=== PATIENT | female | born 1960 | race African-American/Black ===

== ENCOUNTER 2020-12-05 11:33 | Inpatient (IN) | payer OTHER ==
[2020-12-05 12:28] VITALS: BMI 33.6
[2020-12-05] MEDS ORDERED: IBUPROFEN 400 MG TABLET (FP) PO PRN (18:04)
[2020-12-05] MEDS ORDERED: P-EPHED 60MG/TRIPROLIDI 2.5MG TABLET PO PRN (18:04)
[2020-12-05] MEDS ORDERED: MAG HYDROX/AL HYDROX/SIMETH 30 ML UNIT-DOSE CUP PO PRN (18:04)
[2020-12-05] MEDS ORDERED: MAGNESIUM HYDROX 2400MG/30ML ORAL SUSPENSION 30 ML CUP PO PRN (18:04)
[2020-12-05] MEDS ORDERED: guaiFENesin 200 MG/10 ML 10 ML UNIT-DOSE CUPS PO PRN (18:04)
[2020-12-05] MEDS ORDERED: LOPERAMIDE HCL 2 MG CAPSULE PO PRN (18:04)
[2020-12-05] MEDS ORDERED: MAGNESIUM CITRATE 300 ML BOTTLE PO PRN (18:04)
[2020-12-05] MEDS ORDERED: ACETAMINOPHEN 325 MG TABLET (FP) PO PRN (18:04)
[2020-12-05] MEDS ORDERED: TUBERCULIN PPD 5 TU/0.1ML VIAL ID ONE (18:47)
[2020-12-05] MEDS: NICOTINE 21 MG/24 HOURS TOPICAL PATCH TD SCH (18:51)
[2020-12-05] MEDS: hydrOXYzine PAMOATE 25 MG CAPSULE (FP) PO SCH (22:09)
[2020-12-05] MEDS: MELATONIN 5 MG TABLETS PO SCH (22:09)
[2020-12-05] MEDS: THIAMINE HCL 100 MG TABLET (FP) PO SCH (22:10)
[2020-12-06] MEDS: hydrOXYzine PAMOATE 25 MG CAPSULE (FP) PO SCH ×5 (06:40→21:12)
[2020-12-06 08:59] LABS: ALBUMIN 3.7 g/dl (3.4-5.0); BLOOD UREA NITROGEN 7.9 mg/dL (7-18); CALCIUM 8.9 mg/dL (8.5-10.1)
[2020-12-06 08:59] LABS: HEMATOCRIT 37.1 % (32.4-45.2); HEMOGLOBIN 12.4 GM/dL (10.7-15.3); MCH 31.1 pg (25.7-33.7); MCHC 33.5 g/dl (32.0-36.0); MEAN CELL VOLUME 92.9 fl (80-96); MEAN PLT VOLUME 8.4 fl (7.5-11.1); PLATELET COUNT 304 10^3/uL (134-434); RBC 3.99 M/mm3 (3.60-5.2); RDW 15.8 % (11.6-15.6); WHITE BLOOD COUNT 5.1 K/mm3 (4.0-10.0)
[2020-12-06 09:02] LABS: CREATININE 0.9 mg/dL (0.55-1.3)
[2020-12-06 09:04] LABS: BILIRUBIN,TOTAL 0.2 mg/dL (0.2-1); TOT PROT 7.4 g/dl (6.4-8.2)
[2020-12-06] MEDS: NICOTINE 21 MG/24 HOURS TOPICAL PATCH TD SCH (11:10)
[2020-12-06] MEDS: PRENATAL VITAMINS W/ FOLIC ACID TABLET (FP) PO SCH (11:10)
[2020-12-06] MEDS: GABAPENTIN 400 MG CAPSULE PO SCH ×3 (11:11→21:12)
[2020-12-06] MEDS: PANTOPRAZOLE 20 MG TABLET PO SCH (11:11)
[2020-12-06] MEDS: ABACAVIR/DOLUTEGRAVIR/LAMIVUDI (TRIUMEQ) TABLET -NF PO SCH (13:01)
[2020-12-06] MEDS: THIAMINE HCL 100 MG TABLET (FP) PO SCH (21:11)
[2020-12-06] MEDS: risperiDONE 1 MG TABLET PO SCH (21:12)
[2020-12-06] MEDS: MELATONIN 5 MG TABLETS PO SCH (21:12)
[2020-12-07] MEDS: hydrOXYzine PAMOATE 25 MG CAPSULE (FP) PO SCH ×5 (06:31→21:45)
[2020-12-07] MEDS: GABAPENTIN 400 MG CAPSULE PO SCH ×3 (06:31→21:45)
[2020-12-07] MEDS: risperiDONE 1 MG TABLET PO SCH ×2 (10:36→21:44)
[2020-12-07] MEDS: NICOTINE 21 MG/24 HOURS TOPICAL PATCH TD SCH (10:36)
[2020-12-07] MEDS: PRENATAL VITAMINS W/ FOLIC ACID TABLET (FP) PO SCH (10:36)
[2020-12-07] MEDS: DULoxetine HCL 30 MG CAPSULE.DR PO SCH (10:36)
[2020-12-07] MEDS: ABACAVIR/DOLUTEGRAVIR/LAMIVUDI (TRIUMEQ) TABLET -NF PO SCH (10:37)
[2020-12-07] MEDS: PANTOPRAZOLE 20 MG TABLET PO SCH (10:37)
[2020-12-07] MEDS: NICOTINE POLACRILEX 2 MG GUM BC PRN (10:38)
[2020-12-07] MEDS: MELATONIN 5 MG TABLETS PO SCH (21:45)
[2020-12-07] MEDS: THIAMINE HCL 100 MG TABLET (FP) PO SCH (21:45)
[2020-12-08] MEDS: GABAPENTIN 400 MG CAPSULE PO SCH ×3 (06:02→23:15)
[2020-12-08] MEDS: hydrOXYzine PAMOATE 25 MG CAPSULE (FP) PO SCH ×2 (06:02→10:46)
[2020-12-08] MEDS: PANTOPRAZOLE 20 MG TABLET PO SCH (10:45)
[2020-12-08] MEDS: PRENATAL VITAMINS W/ FOLIC ACID TABLET (FP) PO SCH (10:45)
[2020-12-08] MEDS: risperiDONE 1 MG TABLET PO SCH ×2 (10:46→23:14)
[2020-12-08] MEDS: DULoxetine HCL 30 MG CAPSULE.DR PO SCH (10:46)
[2020-12-08] MEDS: NICOTINE 21 MG/24 HOURS TOPICAL PATCH TD SCH (10:46)
[2020-12-08] MEDS: ABACAVIR/DOLUTEGRAVIR/LAMIVUDI (TRIUMEQ) TABLET -NF PO SCH (10:48)
[2020-12-08] MEDS: NICOTINE POLACRILEX 2 MG GUM BC PRN (10:50)
[2020-12-08] MEDS ORDERED: hydrOXYzine PAMOATE 25 MG CAPSULE (FP) PO PRN (11:12)
[2020-12-08] MEDS: THIAMINE HCL 100 MG TABLET (FP) PO SCH (23:15)
[2020-12-08] MEDS: MELATONIN 5 MG TABLETS PO SCH (23:15)
[2020-12-09] MEDS: GABAPENTIN 400 MG CAPSULE PO SCH ×3 (07:10→21:28)
[2020-12-09] MEDS: PRENATAL VITAMINS W/ FOLIC ACID TABLET (FP) PO SCH (10:48)
[2020-12-09] MEDS: DULoxetine HCL 30 MG CAPSULE.DR PO SCH (10:48)
[2020-12-09] MEDS: risperiDONE 1 MG TABLET PO SCH ×2 (10:48→21:28)
[2020-12-09] MEDS: NICOTINE 21 MG/24 HOURS TOPICAL PATCH TD SCH (10:49)
[2020-12-09] MEDS: ABACAVIR/DOLUTEGRAVIR/LAMIVUDI (TRIUMEQ) TABLET -NF PO SCH (10:49)
[2020-12-09] MEDS: PANTOPRAZOLE 20 MG TABLET PO SCH (10:49)
[2020-12-09] MEDS: NICOTINE POLACRILEX 2 MG GUM BC PRN (10:51)
[2020-12-09] MEDS: THIAMINE HCL 100 MG TABLET (FP) PO SCH (21:28)
[2020-12-09] MEDS: MELATONIN 5 MG TABLETS PO SCH (21:28)
[2020-12-10] MEDS: GABAPENTIN 400 MG CAPSULE PO SCH ×3 (06:57→22:14)
[2020-12-10] MEDS: DULoxetine HCL 30 MG CAPSULE.DR PO SCH (10:00)
[2020-12-10] MEDS: PANTOPRAZOLE 20 MG TABLET PO SCH (10:01)
[2020-12-10] MEDS: risperiDONE 1 MG TABLET PO SCH ×2 (10:01→22:15)
[2020-12-10] MEDS: NICOTINE 21 MG/24 HOURS TOPICAL PATCH TD SCH (10:01)
[2020-12-10] MEDS: PRENATAL VITAMINS W/ FOLIC ACID TABLET (FP) PO SCH (10:01)
[2020-12-10] MEDS ORDERED: PT OWN MED DRAWER 7, Y5N ONE (10:02)
[2020-12-10] MEDS: ABACAVIR/DOLUTEGRAVIR/LAMIVUDI (TRIUMEQ) TABLET -NF PO SCH (10:03)
[2020-12-10 17:05] LABS: EPI CELLS >36 /uL (0-25.1); HYALINE CASTS 1 /uL (0-3.1); PH,URINE 5.5 (5.0-8.0); URINE APPEARANCE CLOUDY; URINE BACTERIA 686 /uL (0-1359); URINE BILIRUBIN NEGATIVE (NEGATIVE); URINE COLOR YELLOW; URINE GLUCOSE (UA) NEGATIVE (NEGATIVE); URINE KETONE NEGATIVE (NEGATIVE); URINE LEUK ESTERASE TRACE (NEGATIVE); URINE NITRITE NEGATIVE (NEGATIVE); URINE PROTEIN NEGATIVE (NEGATIVE); URINE RBC 4 /uL (0-23.9); URINE WBC 24 /uL (0-25.8)
[2020-12-10] MEDS: THIAMINE HCL 100 MG TABLET (FP) PO SCH (22:13)
[2020-12-10] MEDS: MELATONIN 5 MG TABLETS PO SCH (22:14)
[2020-12-11] MEDS: GABAPENTIN 400 MG CAPSULE PO SCH ×3 (06:14→21:20)
[2020-12-11] MEDS: ABACAVIR/DOLUTEGRAVIR/LAMIVUDI (TRIUMEQ) TABLET -NF PO SCH (10:55)
[2020-12-11] MEDS: PRENATAL VITAMINS W/ FOLIC ACID TABLET (FP) PO SCH (10:55)
[2020-12-11] MEDS: risperiDONE 1 MG TABLET PO SCH ×2 (10:55→21:20)
[2020-12-11] MEDS: PANTOPRAZOLE 20 MG TABLET PO SCH (10:55)
[2020-12-11] MEDS: DULoxetine HCL 30 MG CAPSULE.DR PO SCH (10:55)
[2020-12-11] MEDS: NICOTINE 21 MG/24 HOURS TOPICAL PATCH TD SCH (10:55)
[2020-12-11] MEDS: THIAMINE HCL 100 MG TABLET (FP) PO SCH (21:20)
[2020-12-11] MEDS: MELATONIN 5 MG TABLETS PO SCH (21:20)
[2020-12-12] MEDS: GABAPENTIN 400 MG CAPSULE PO SCH (06:31)
[2020-12-12 07:47] VITALS: BP 144/80; PULSE 84; TEMP 97.8
[2020-12-12] MEDS: risperiDONE 1 MG TABLET PO SCH (09:52)
[2020-12-12] MEDS: DULoxetine HCL 30 MG CAPSULE.DR PO SCH (09:52)
[2020-12-12] MEDS: PRENATAL VITAMINS W/ FOLIC ACID TABLET (FP) PO SCH (09:52)
[2020-12-12] MEDS: PANTOPRAZOLE 20 MG TABLET PO SCH (09:52)
[2020-12-12] MEDS: NICOTINE 21 MG/24 HOURS TOPICAL PATCH TD SCH (09:53)
[2020-12-12] MEDS: ABACAVIR/DOLUTEGRAVIR/LAMIVUDI (TRIUMEQ) TABLET -NF PO SCH (09:53)
== END 2020-12-12 10:45 | disposition home or self-care (01) | DRG 895 ==
LOC: YASAS 11:33 → Y5N 17:54
PROVIDERS: ADMIT Allergy & Immunology; ATTEND Allergy & Immunology
PROC: HZ42ZZZ Group Counseling for Substance Abuse Treatment, Cognitive-Behavioral (ICD-10-PCS; principal; 2020-12-05)
DX: F10.20 Alcohol dependence, uncomplicated (principal); F14.20 Cocaine dependence, uncomplicated; F17.210 Nicotine dependence, cigarettes, uncomplicated; F20.9 Schizophrenia, unspecified; F32.9 Major depressive disorder, single episode, unspecified; Z21 Asymptomatic human immunodeficiency virus [HIV] infection status; Z88.0 Allergy status to penicillin
CPT/HCPCS: 36415; 80053; 81003; 85027; 86780; C9803; J2794; U0003; U0005